=== PATIENT | female | born 1935 | race Caucasian/White ===

== ENCOUNTER 2024-07-31 12:19 | Inpatient (IN) | payer OTHER, SELFPAY ==
[2024-07-31] VITALS (11 sets, daily range): BP systolic 92–138; BP diastolic 46–77; BMI 25.7; BMI 25.0
--- NOTE | 2024-07-31 07:15 | ED.GENMED ---
History of Present Illness
General
Chief Complaint: Abdominal Symptoms
Source: patient
Time Seen by Provider: 07/31/24 07:02
History of Present Illness
History of Present Illness:
88-year-old female with past medical history of hyperlipidemia and hypothyroidism presenting to the ER via EMS for evaluation of mild mid abdominal cramping that started about an hour after eating dinner last night accompanied with persistent nausea
and vomiting, patient admits to trying to self-induced vomitus due to the discomfort caused by the nausea but states this did not provide her with any relief. She notes earlier this morning she is now also experiencing some tightness across her
chest. With continued nausea. She denies any fevers, chills, rigors, bowel changes or urinary symptoms although notes that while vomiting last night she did have some urinary leakage. Patient states that she had some chicken noodle soup, salad
and a little ice cream which is typical dinner for her. She notes that she has been feeling a little bit constipated and put some Benefiber in her soup as well. Patient denies any history of similar. EMS did provide patient with 4 mg Zofran with
minimal relief upon arrival.
Past History
Past History
ED Past Medical History: Hypercholesterolemia and Hypothyroidism
ED Past Surgical History: None
Social History
Tobacco: Non-smoker
Alcohol: None
Drug: None
Living: alone
Review of Systems
Review of Systems
All Other Systems: ROS reviewed and negative except as documented in HPI and ROS
Phy Exam
Physical Exam
Physical Exam:
GENERAL: Alert , in no apparent distress but does appear uncomfortable, laying recumbent with her eyes closed
EYE: clear conjunctiva b/l
HEAD: NCAT
ENT: mmm.
CARDIAC: Regular rate and rhythm, no murmur.
LUNGS: Clear breath sounds bilaterally, no acute respiratory distress, no wheezes/rales/rhonchi
ABDOMEN: Soft, generalized tenderness, no r/g, no cvat, negative Caraballo sign, no tenderness at McBurney's point
NEUROLOGICAL: Alert and oriented
SKIN: Warm and dry, skin intact.
MUSCULOSKELETAL: No edema, well perfused.
PSYCH: Normal and appropriate interaction.
Scores
Heart Failure Risk
Heart Failure Risk Score: Not Applicable
Heart Score for Chest Pain Patients
STEMI patient?: Not applicable
Withdrawal Assessment of Alcohol
Withdrawal Assessment Completed?: Not applicable
Course
Orders/Labs/Results
Orders:
Orders
07/31/24 07:01
Electrocardiogram (*1) Urgent
Reason for Study: Abdominal Pain
EKG- Treatment ONCE
IV Insert/Care/Rem.- Treatment PRN
07/31/24 07:05
Complete Blood Count/With Diff Urgent
Comprehensive Metabolic Panel Urgent
Lipase Urgent
07/31/24 07:14
CT Abd/pelvis W Iv Cont Urgent
Comment:
Reason For Exam: generalized abd pain, vomiting
Troponin I Urgent
Ondansetron Injectable [Zofran] 4 mg IV NOW STA
CR Chest - 2 Views Urgent
Comment:
Reason For Exam: chest discomfort, vomiting, abd pain
07/31/24 07:46
Metoclopramide [Reglan] 10 mg .ROUTE .STK-MED ONE
07/31/24 07:48
Metoclopramide [Reglan] 10 mg IV NOW STA
07/31/24 08:37
EKG- Treatment ONCE
07/31/24 08:44
US Abdomen Limited Urgent
Reason For Exam: cholelithiasis, vomiting Eval GB F/U to CT
07/31/24 10:00
EKG [Electrocardiogram (*1)] Urgent
Reason for Study: Abdominal Pain
07/31/24 10:01
Troponin I Urgent
07/31/24 11:05
Aspirin Chewable [Low Strength Aspirin] 324 mg PO NOW STA
07/31/24 11:54
Admit/Transfer Patient As Directed
Co-Sign Provider:
Level of Care: Inpatient admission
Assign to:: Telemetry
Physician / Group: sudheer storm
Diagnosis: nstemi
Reason for Telemetry: Chest Pain syndromes
Date to Stop Telemetry: 08/02/24
Time to Stop Telemetry: 11:00
Reason for Hospitalization: nstemi
Expected length of stay greater than two midnights?: No
ELOS- Estimated Length of Stay in days: 3
I certify the patient meets the requirements for IP care: Yes
PRN Pain Medication Management As Directed
May give lesser potent ordered pain med per pt: Yes
preference::
Protocol:: Medication orders for pain may be administered in a
manner that supports deferring to patient preference
when the pt is:
-Requesting an ordered lesser potent pain medication.
Least to most potent pain medications are defined as:
acetaminophen < NSAID < tramadol < opioids (morphine,
oxycodone, hydromorphone).
- Requesting a lesser dose of the same medication IF
ORDERED.
- Requesting a less intrusive route of administration
if both routes are prescribed by the provider (PO <
IV).
07/31/24 11:56
CARDIOLOGY CONSULT Routine
Consulting Provider: Jose Ramirez
Was physician already notified: Yes
07/31/24 13:17
Atorvastatin [Lipitor] 20 mg PO .3 TIMES PER WEEK
Enoxaparin Sodium [Lovenox] 30 mg SC NOW STA
Tramadol HCl [Ultram] 50 mg PO DAILY PRN
07/31/24 20:00
olopatadine 1 drop OPHTH BID
vit C,B-Gn-upqbk-lutein-zeaxan [PreserVision AREDS-2] 1 tablet PO BID
07/31/24 22:00
Melatonin 5 mg PO HS
08/01/24 08:00
Levothyroxine [Synthroid] 75 mcg PO DAILY
Loratadine [Claritin] 10 mg PO DAILY
ily-[id number]-[id number]-cfmh-mnv-zzfy-eof [Caltrate 600-D Plus Minerals] 1 tablet PO DAILY
calcium phos,dibas-vitamin D3 1 tablet PO DAILY
08/02/24 11:00
DC Protocol for Telemetry ONCE
Abnormal Lab Results
07/31/24 07/31/24 07/31/24
07:05 07:14 10:01
WBC 15.0 H 10^3/uL
(4.8-10.8)
MCHC 32.4 L g/dL
(33.0-37.0)
Abs Immat Gran (auto) 0.1 H 10^3/uL
(0-0.05)
Absolute Neuts (auto) 13.1 H 10^3/uL
(1.4-6.5)
Neutrophils % 87.4 H %
(42.2-75.2)
Lymphocytes % 7.7 L %
(20.5-51.1)
BUN 18 H mg/dl
(7-17)
Glucose 154 H mg/dl
(70-99)
Troponin I 0.043 H* ng/ml 0.140 H* D ng/ml
07/31/24 07:05
07/31/24 07:05
Vital Signs
Initial and Last Documented VS:
Initial Vital Signs
Temp Pulse Resp BP Pulse Ox
97.7 F 48 16 138/76 96
07/31/24 06:55 07/31/24 06:55 07/31/24 06:55 07/31/24 06:55 07/31/24 06:55
Last Documented Vital Signs
Temp Pulse Resp BP Pulse Ox
97.7 F 94 23 95/51 96
07/31/24 06:55 07/31/24 13:00 07/31/24 13:00 07/31/24 13:00 07/31/24 13:00
MDM/Problems Addressed
Differential Diagnosis Includes:
Gastroenteritis, foodborne illness, atypical ACS presentation, bowel obstruction, electrolyte imbalance, dehydration, aspiration
MDM/Problems Addressed:
88-year-old female presenting to the emergency department for evaluation after developing nausea about 1 hour after eating dinner last night, proceeded to have some vomitus but describes this to be bilious emesis but having continued nausea, mid
abdominal cramping and today had some chest discomfort. On arrival here patient's oxygen dropped to 88% and placed on 2 L NC with good response. Patient also had a somewhat transient episode of bradycardia with her heart rate dropping down to 48.
During my exam patient's heart rate persistently in the upper 50s to low 60s. Abdominal exam reassuring. Patient does appear uncomfortable still but more from nausea. Additional 4 mg Zofran ordered. Labs, chest x-ray and CT of the abdomen pelvis
ordered. Disposition pending
*Radiology
Radiology exam reviewed: radiology read reviewed
*Pulse Oximetry
Patient hypoxic: no
*EKG
Interpreted by ED Provider?: Yes
Heart Rate: 60
Rate: normal
Rhythm: sinus arrhythmia
[place]: left axis deviation
Ischemia: T-wave inversion (Nonspecific)
*Filer Repairer Interpretation
Rate: bradycardiac
Rhythm: sinus and PVC's
*Critical Care Note
Total Time (30-74mins, 75-104mins- exclusive of procedures): Not Applicable
Patient Management
Discussion with other providers: Hospitalist and Lodging Facilities Attendant
Escalation/DeEscalation of care consider admission/obs:
Patient's repeat troponin came back significantly more elevated at 0.140. Cardiology team and hospitalist team are made aware. Cardiology deferring heparin to hospitalist service. Patient received 325 mg of aspirin by EMS on her way to the ER.
She is currently chest pain-free. Repeat EKG is unchanged and remains without acute ischemic changes. Hospitalist team to admit.
ED Attending Note
-
Portions of this chart may have been created with voice recognition software.� Occasional wrong word or��sound alike� substitutions may have occurred due to the inherent limitations of voice recognition software.
Discharge Plan
Departure
Patient Disposition: Admit
Date of Disposition: 07/31/24
Time of Disposition: 11:29
Presentation/result/management discussed w/ accepting MD/DO: Hospitalist
Discharge Problem:
Elevated troponin, Nausea
Interventions
Interventions:
*Risk Screen - Suicide Last Done: 07/31/24 06:55
*General Assessment Last Done: 07/31/24 06:55
*Neglect/Abuse Screening Last Done: 07/31/24 06:55
ED- Fall Risk Assessment Last Done: 07/31/24 07:30
*ED COVID-19 Vaccine History Last Done: 07/31/24 11:47
OT-Raagzd-Jrfltoaddq Assessment Last Done: 07/31/24 07:30
[2024-07-31] MEDS: ZOFRAN 4 MG IV ×2 (07:16→19:28)
[2024-07-31 07:19] LABS: % Basophils 0.5 % (0-2); % Eosinophils 0.2 % (0-6); % Immature Granulocytes 0.4 % (0-0.5); % Lymphocytes 7.7 % (20.5-51.1); % Monocytes 3.8 % (1.7-9.3); % Neutrophils 87.4 % (42.2-75.2); Absolute Basophils 0.1 10^3/uL (0-0.2); Absolute Immature Granulocytes 0.1 10^3/uL (0-0.05); Absolute Lymphocytes 1.2 10^3/uL (1.2-3.4); Absolute Monocytes 0.6 10^3/uL (0.1-0.6); Absolute Neutrophils 13.1 10^3/uL (1.4-6.5); Hematocrit 42.9 % (37.0-47.0); Hemoglobin 13.9 g/dL (12.0-16.0); Mean Corp Hgb Conc. 32.4 g/dL (33.0-37.0); Mean Corpuscular Hgb 30.8 pg (27.0-31.0); Mean Corpuscular Volume 94.9 fL (81.0-99.0); Mean Platelet Volume 9.5 fL (7.4-10.4); Nucleated Red Blood Cells % 0 %; Platelet Count 300 10^3/uL (130-400); Red Blood Cell Count 4.52 10^6/uL (4.20-5.40); Red Cell Dist. Width 13.2 % (11.5-14.5)
[2024-07-31 07:27] LABS: ALT (SGPT) 19 U/L (0-35); AST (SGOT) 26 U/L (14-36); Albumin 4.3 g/dl (3.5-5.0); Alkaline Phosphatase 67 U/L (38-126); Blood Urea Nitrogen 18 mg/dl (7-17); Calcium 9.3 mg/dl (8.4-10.2); Carbon Dioxide 27 mmol/L (22-30); Chloride 103 mmol/L (98-107); Estimated Creatinine Clearance 62 ml/min; Glucose 154 mg/dl (70-99); Potassium 4.1 mmol/L (3.5-5.1); Sodium 142 mmol/L (135-145); Total Bilirubin 0.4 mg/dl (0.2-1.3); Total Protein 6.9 g/dl (6.3-8.2); eGFR > 60.00
[2024-07-31 07:49] LABS: Lipase 242 U/L (23-300)
[2024-07-31] MEDS: REGLAN 10 MG IV (07:49)
[2024-07-31 07:57] LABS: Troponin I 0.043 ng/ml
--- NOTE | 2024-07-31 12:18 | CON.CAR ---
Consultation
Consultation Request
Date/Time Consultation Requested: July 31, 2024
Date/Time Consultation Performed: July 31, 2024
Requesting Provider: Dr. Iban Jacobsen
Performing Provider: Dr. Ramirez
Reason for Consultation: Chest pain, elevated troponin
Medical History
-
Chief Complaint: Epigastric pain
History of Present Illness:
Rica is a 88-year-old female with history of hyperlipidemia hypothyroidism former distant smoker who presented with epigastric discomfort. She was eating dinner last night and had [place] chicken noodle soup and a salad at [facility] where
she lives. A short time thereafter she developed epigastric pain associated with nausea and wanting to vomit. She stuck her finger in her throat to try to vomit but was unable to induce vomiting at that time. She googled her symptoms and was
concerned about a possible cardiac issue. She came to the emergency room and was without acute EKG changes. First troponin was 0.043 and second troponin 0.1. Cardiology consulted secondary to troponin elevation and for further evaluation.
While in the emergency room she underwent CT scan of the abdomen and pelvis which did not show any specific abnormality other than the gallbladder containing a small amount of dependent sludge/stones. An abdominal ultrasound showed evidence of
cholelithiasis without sonographic evidence of acute cholecystitis. She states that treatment for nausea in the emergency room helped improve her symptoms immensely. She also vomited. She currently denies chest pain or shortness of breath. She
does admit to some recent fatigue and some dyspnea on exertion.
Past medical history:
Hyperlipidemia on Lipitor 3 times a week
Hypothyroidism
Cataract surgery
Past smoker quit over 40 years ago
Social History
Tobacco: Former Smoker (Quit over 40 years ago)
Alcohol: Occasional
Drug: None
Personal:
Living: Assisted Living
Employment: Retired
Family History
Family History: Reviewed & Not Pertinent (Her father had a stroke in his 70s to 80s)
Allergies / Home Medications
Allergy/AdvReac Type Severity Reaction Status Date / Time
No Known Allergies Allergy Unverified 07/31/24 07:12
�Medication �Instructions �Recorded �Confirmed �Type
atorvastatin 20 mg tablet 20 mg PO .3 TIMES PER WEEK 07/31/24 07/31/24 History
calcium 600 mg-D3 800 unit-mag11 1 tab PO DAILY 07/31/24 07/31/24 History
50 ad-irrz-uosjsr-george-s.borat
tablet (Caltrate 600-D Plus
Minerals)
calcium phosphate,dibasic 77 1 tab PO DAILY 07/31/24 07/31/24 History
mg-vitamin D3 400 unit tablet
levothyroxine 75 mcg tablet 75 mcg PO DAILY 07/31/24 07/31/24 History
loratadine 10 mg tablet (Claritin) 10 mg PO DAILY 07/31/24 07/31/24 History
melatonin 5 mg tablet 5 mg PO HS 07/31/24 07/31/24 History
olopatadine 0.1 % eye drops 1 drp ophthalmic (eye) BID 07/31/24 07/31/24 History
tramadol 50 mg tablet 50 mg PO DAILY PRN pain 07/31/24 07/31/24 History
vit C 250 mg-vit E 90 mg-zinc 40 1 tab PO BID 07/31/24 07/31/24 History
mg-copper 1 pr-jhpczt-ugtoas
capsule (PreserVision AREDS-2)
Review of Systems
-
History Source: Patient
All other systems: Negative unless noted
Abdomen/GI: Nausea, Vomiting and Pain (Epigastric pain)
Physical Exam
Vital Signs
Temp Pulse Resp BP Pulse Ox
97.7 F 95 24 93/48 97
07/31/24 06:55 07/31/24 12:00 07/31/24 12:00 07/31/24 12:00 07/31/24 12:00
Physical examination:
General: No acute distress, AAOX3
Neck: Negative JVD
Heart: Regular, Negative S3 positive S1/S2, Negative S4, No murmur
Lungs: CTA b/l, negative wheezes/rales/rhonchi
Abd: Positive BS, NT/ND, neg rebound/rigidity/guarding
Ext: Negative cyanosis/clubbing/edema
Neuro: nonfocal
Lab Results
07/31/24 07:05
07/31/24 07:05
Troponin I 0.140 ng/ml H* D 07/31/24 10:01
Impression / Plan
-
.
Impression:
Epigastric pain after eating
Nausea and vomiting
Shortness of breath
Elevated troponin, 0.1 and trending
Abnormal EKG
Hyperlipidemia
Cholelithiasis on ultrasound and CT scan
Hypothyroidism
Distant smoker
Plan:
Her symptoms are atypical for cardiac and her epigastric pain currently is reproducible.
CT scan ultrasound findings reviewed. She did respond to treatment for nausea. Consider GI evaluation inpatient versus outpatient
Continue to trend enzymes until they peak.
Check echo to evaluate for structural heart disease
Pending cardiac enzyme peak, will consider ischemic evaluation.
NPO after midnight for possible ischemic evaluation tomorrow
Monitor EKG, inferolateral T wave inversions.
Start aspirin 81 mg daily.
Check fasting lipids. Continue statin therapy
Heart rate and blood pressure acceptable. Heart rate is on the higher side, start low-dose beta-luciana therapy.
Discussed with nursing and primary service
.
Data Reviewed
-
EKG: Tracing Personally Visualized and interpreted
CT Scan: Report Reviewed by me
Ultrasound: Report Reviewed by me
Labs: Labs Reviewed by me
--- NOTE | 2024-07-31 12:29 | HPS.HSE ---
Family Physician
-
Family Physician: Melida Grijalva
Chief Complaint
-
CHest pain nausea
History of Present Illness
88 female with a history of hyperlipidemia on 3 times a week Lipitor, hypothyroidism, former smoker who presents with nausea that began after eating dinner last night that continued throughout the night and subsequently developed chest tightness
this morning that spread across her chest to her back. No diaphoresis nor tachycardia. She is unable to tell me if she had any abdominal pain. States that she [place] chicken noodle soup�old-fashioned with a salad from her assisted living
facility. Has not had chest discomfort like this in the past.
In the ED: Blood pressure trending down most recent 93/48 on the softer side, otherwise hemodynamically stable, white blood cell count 15, BMP unremarkable with first troponin 0.043,
0.14, EKG with T wave inversions in v3-v6, III, avf, flat twave in II.
Former smoker quit many years ago, occasionally drinks alcohol, no drug use
No surgical history
Has a strong family history of cancer. Children from cancer along with mother that is from cancer. She is unable to tolerate who had what type of cancer but she tells me breast brain pancreatic. Father from CVA.
from medical marijuana
She has no known drug allergy
DNR/DNI
Physical Exam
NAD, resting comfortably in bed
Scleral anicteric
Moist mucous membranes
No JVD
CTA bilateral
Normal S1-S2 no murmurs
Soft nontender nondistended bowel sounds active
No peripheral pitting edema
Moves extremities spontaneously
AAOx3
-
-
-
-
-
-
-
-
-
-
-
-
-
-
-
-
-
-
-
Medical History
Past Medical History
Past Medical History: Reports Hypercholesterolemia and Hypothyroidism
Past Surgical History: Reports None
Social History
Tobacco: Former Smoker
Alcohol: Occasional
Drug: None
Family History
Family History: Cancer
Allergies / Home Medications
Allergies reflects when Allergies were last updated in [employer] | Anywhere.
Home Medications with original date entered in [employer] | Anywhere
Allergy/Medication List:
Allergies
Allergy/AdvReac Type Severity Reaction Status Date / Time
No Known Allergies Allergy Unverified 07/31/24 07:12
Home Medications
aflibercept 2 mg/0.05 mL intravitreal syringe (Eylea) 2 mg intravitreal QMONTH 07/31/24
atorvastatin 20 mg tablet 20 mg PO MOWEFR 07/31/24
calcium 600 mg (as carbonate)-vit D3 20 mcg (800 unit) chewable tablet (Caltrate plus D) 1 tab PO DAILY 07/31/24
carboxymethylcellulose 0.5 %-glycerin 0.9 % (PF) eye drops (Refresh Tears PF) 1 drp ophthalmic (eye) DAILYPRN PRN dry eyes 07/31/24
cholecalciferol (vitamin D3) 25 mcg (1,000 unit) tablet (Vitamin D3) 25 mcg PO DAILY 07/31/24
levothyroxine 75 mcg tablet 75 mcg PO DAILY 07/31/24
loratadine 10 mg tablet (Claritin) 10 mg PO DAILYPRN PRN congestion 07/31/24
tramadol 50 mg tablet 50 mg PO DAILYPRN PRN moderate pain 07/31/24
vit C 250 mg-vit E 90 mg-zinc 40 mg-copper 1 cr-ycmywk-yxaifc capsule (PreserVision AREDS-2) 1 tab PO BID 07/31/24
Review of Systems
-
A 12 point ROS was completed and negative except as noted: Yes
Physical Exam
Vital Signs
Vital Signs
Temp Pulse Resp BP Pulse Ox
97.7 F 95 24 93/48 97
07/31/24 06:55 07/31/24 12:00 07/31/24 12:00 07/31/24 12:00 07/31/24 12:00
Physical Exam
General: Well Developed
Laboratory Results
-
07/31/24 07:05
07/31/24 07:05
Laboratory Results
Total Bilirubin 0.4 mg/dl (0.2-1.3) 07/31/24 07:05
AST 26 U/L (14-36) 07/31/24 07:05
ALT 19 U/L (0-35) 07/31/24 07:05
Alkaline Phosphatase 67 U/L (38-126) 07/31/24 07:05
Troponin I 0.140 ng/ml H* D 07/31/24 10:01
Lipase 242 U/L (23-300) 07/31/24 07:05
Impression/Plan
-
Assessment and Plan
Chest discomfort with nausea
-Differential diagnosis broad could be CAD versus microvascular disease versus gastritis versus GERD versus esophageal spasm
-Troponin x 2 positive and doubling thus far
-Trend to peak
-Between the story and diagnostic work up would be concerned for NSTEMI, contemplating starting Hep gtt
--Cardiology consult
--2d echo
--Ischemic eval
--Lipid profile
--A1c
HLD
-On EOD Lipitor, ocnitnue
Hypothyroidism
-Continue levothyroxine
--- NOTE | 2024-07-31 13:12 | CM ---
Chart reviewed. Patient is here for chest pain with nausea. CM introduced self and role. Patient lives at [facility]. She has a grandson for support. She also has 5 great-grandchildren. She is independent. She does own any DME. She has an active
PCP and pharmacy. She shared she has [employer] [facility]- which helps with ambulance costs. She denied any +SDOHs. She is a retired registration officer.
ANTICIPATED DISCHARGE DISPO: Return to [facility], when medically cleared.
[2024-07-31 14:34] LABS: Hematocrit 43.1 % (37.0-47.0); Hemoglobin 14.2 g/dL (12.0-16.0); Mean Corp Hgb Conc. 32.9 g/dL (33.0-37.0); Mean Corpuscular Volume 94.1 fL (81.0-99.0); Mean Platelet Volume 9.5 fL (7.4-10.4); Platelet Count 290 10^3/uL (130-400); Red Blood Cell Count 4.58 10^6/uL (4.20-5.40); Red Cell Dist. Width 13.4 % (11.5-14.5); White Blood Cell Count 21.6 10^3/uL (4.8-10.8)
[2024-07-31 14:44] LABS: APTT 27.7 Sec (23.4-35.0)
[2024-07-31] MEDS: HEPARIN 4000 UNITS IV (15:02)
[2024-07-31] MEDS: HEPARIN 25000 UNITS/250 ML IV (15:05)
[2024-07-31 15:09] LABS: Troponin I 0.252 ng/ml
[2024-07-31] MEDS: TOPROL XL 12.5 MG PO (15:15)
--- NOTE | 2024-07-31 18:02 | PTCARENOTE ---
Pt c/o nausea after meal, stated she only had a few bites as she wasn't very hungry. hospitalist notified.
[2024-07-31] MEDS: ZADITOR 1 DROP OPHTH (20:09)
[2024-07-31] MEDS: OCUVITE SOFTGEL 1 CAP PO (20:09)
[2024-07-31 21:48] LABS: APTT 89.9 Sec (23.4-35.0)
[2024-07-31 21:56] LABS: Troponin I 0.182 ng/ml
[2024-08-01 03:51] VITALS: BP 95/43
[2024-08-01 04:25] LABS: APTT 116.9 Sec (23.4-35.0)
[2024-08-01 04:32] LABS: Troponin I 0.105 ng/ml
[2024-08-01] MEDS: SYNTHROID 75 MCG PO (06:07)
[2024-08-01] MEDS: OSCAL 500 + D 500 MG PO (07:39)
[2024-08-01] MEDS: CLARITIN 10 MG PO (07:39)
[2024-08-01] MEDS: ZADITOR OPHTH ×2 (07:39→07:44)
[2024-08-01] MEDS: TOPROL XL 12.5 MG PO (07:39)
[2024-08-01] MEDS: OCUVITE SOFTGEL 1 CAP PO (07:39)
[2024-08-01] MEDS: LOW STRENGTH ASPIRIN 81 MG PO (07:39)
[2024-08-01] MEDS: LIPITOR 20 MG PO (07:41)
[2024-08-01 07:54] VITALS: BP 111/52
[2024-08-01 08:36] LABS: Troponin I 0.077 ng/ml
[2024-08-01 08:47] LABS: HDL Cholesterol 70 mg/dl; LDL Cholesterol, Calculated 52 mg/dl; Total Cholesterol 137 mg/dl (50-199); Triglyceride 79 mg/dl (10-149); Very Low Density Lipoprotein 15 mg/dl (0-30)
[2024-08-01 10:49] LABS: APTT 72.5 Sec (23.4-35.0)
--- NOTE | 2024-08-01 10:58 | W.PN.HOSP.TC ---
Today's Communication/Plan
-
Pt wants to go home
Stable VS upon rechecking
PT/OT before discharge
Assessment / Plan
Assessment / Plan
Physical exam:
General: No acute distress.
Neck: Negative JVD
Heart: Regular, Negative S3 positive S1/S2, Negative S4, No murmur
Lungs: CTA b/l, negative wheezes/rales/rhonchi
Abd: Positive BS, NT/ND, neg rebound/rigidity/guarding
Ext: Negative cyanosis/clubbing/edema
Neuro: nonfocal, AAOX3
Psych; calm, pleasant
# NSTEMI peak Troponin 0.252
she had chest discomfort with nausea, currently symptoms free >24 hours
troponin peak at 0.2 then went down to 0.07
She was started on aspirin, Toprol, Plavix with Atorvastatin.
Echo 08/01/24 showed Normal LVEF at 55-60%, normal left ventricular size and function. Normal regional wall motion. Mild concentric left ventricular hypertrophy. Moderate tricuspid regurgitation. Estimated pulmonary artery pressure of 35-40 mmHg.
Patient wants to go home and she declined cardiac cath offered by cardiology. I spoke with her at length and discussed potential severe [place], , stroke but she felt that she wanted to have time to rethink about cath before deciding. I offered to
keep her another night to give her time to decide but she declined to stay. ,
Appreciate cardiology input, recommend to stop heparin gtt, c/w Asprin and Plavix and follow in the office.
#HLD
-On EOD Lipitor, ocnitnue
# Hypothyroidism
-Continue levothyroxine
Total discharge time spent to see the patient, examine the patient on the floor, review data and lab results, discuss discharge plan with patient, nursing staff around 65 minutes
Anticipated Discharge: Today
Subjective/Interval History
-
Date of Service: August 01, 2024
No chest pain No sob
Wants to go home today
Objective Data
-
Labs:
Laboratory Results
08/01/24 08/01/24
03:48 10:13
APTT 116.9 H 72.5 H
Vital Signs:
Vital Signs
Temp Pulse Resp BP Pulse Ox
97.8 F 71 18 111/52 95
08/01/24 07:54 08/01/24 07:54 08/01/24 07:54 08/01/24 07:54 08/01/24 07:54
I&O
07/31/24 08/01/24 08/02/24
06:59 06:59 06:59
Intake Total 840 / 840
Balance 840 / 840
--- NOTE | 2024-08-01 11:09 | W.PN.CARDCBS ---
Addendum entered and electronically signed by Jose Ramirez DO 08/01/24 14:33:
I saw and examined the patient.
The Band Cutting Machine Operator's note was reviewed and I agree with the note.
Comment:
Plan:
Long discussion with the patient regarding her troponin peak at 0.2, abnormal EKG and symptoms.
We discussed further evaluation with cardiac catheterization including the risks and benefits in detail.
Reviewed her echocardiogram which was unremarkable with preserved LV function and no significant valvular disease.
After review, the patient opts against invasive treatment at this time including cath. She wants to follow-up with her PCP and discuss further and be followed clinically for now.
She understands that delay in evaluation of her coronary anatomy could lead to increased risk of future NC and .
At her advanced age she states she would prefer to be more conservative at present.
She also opted against speaking with additional family members.
Continue dual antiplatelet therapy.
Continue statin therapy. She has been intolerant to higher doses of statin therapy.
Will give her our contact information as she declined a follow-up visit in our office.
Primary service was updated.
Original Note:
Today's Communication / Plan
-
Cont Heparin gtt for now, but will add Plavix to aspirin
Cont new med of Toprol XL 12.5 mg daily that was started this admission
Cont outpatient dose of atorvastatin, she has intolerance to higher doses of statin
54 min in face to face time and chart prep
Impression / Plan
-
PCP: Dr. Melida Grijalva
Cardiology: None prior to admission, seen by Dr. Ramirez initially
Impression:
Epigastric pain after eating
Nausea and vomiting
Shortness of breath
Suspected NSTEMI peak Troponin 0.252
Abnormal EKG
Hyperlipidemia
Cholelithiasis on ultrasound and CT scan
Hypothyroidism
Distant smoker
Echo 08/01/24: EF 55-60%, mod TR with PAP 35 mmHg
Plan:
-Patient with atypical chest pain on admission and Troponin peaked at 0.252 with inferior and anterolateral T wave inversions. Echo without WMA. Patient started on Heparin gtt 07/31/24. Patient has not had recurrent chest pain.
-Talked with patient 08/01/24, asked if there was anyone she wanted to call and have on speaker phone while we talked, but her child and she only has a grandson who has 5 kids of his own and so she does not want to burden him. We talked
about all of the above and talked about options for management including cardiac cath vs medical therapy vs doing nothing. Reviewed risks vs benefits of cath and patient does not want to have cath at this time. Patient is willing to start medical
therapy.
-Will start Plavix in addition to aspirin. Patient was not taking aspirin prior to admission
-New to Toprol XL 12.5 mg daily
-LDL 52. Patient has a h/o statin intolerance and will cont her outpatient dose of atorvastatin 20 mg daily.
-Patient is not sure which can filling machine operator she would want to follow up with, she wants to get an opinion from her PCP and mentions seeking a 2nd opinion elsewhere.
-Will ask cardiac rehab to see, she might decline
-Patient is asking for d/c to home 08/01/24.
.
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
Subjective
Date of Service: August 01, 2024
Feels well, no chest pain
Objective
Labs:
07/31/24 14:22
07/31/24 07:05
Labs
Hgb 14.2 g/dL (12.0-16.0) 07/31/24 14:22
Hct 43.1 % (37.0-47.0) 07/31/24 14:22
Plt Count 290 10^3/uL (130-400) 07/31/24 14:22
APTT 72.5 Sec (23.4-35.0) H 08/01/24 10:13
Sodium 142 mmol/L (135-145) 07/31/24 07:05
Potassium 4.1 mmol/L (3.5-5.1) 07/31/24 07:05
BUN 18 mg/dl (7-17) H 07/31/24 07:05
Creatinine 0.7 mg/dL (0.6-1.0) 07/31/24 07:05
Glucose 154 mg/dl (70-99) H 07/31/24 07:05
Troponins
07/31/24 07/31/24 07/31/24
07:14 10:01 14:22
Troponin I 0.043 H* 0.140 H* D 0.252 H* D
07/31/24 08/01/24 08/01/24
21:21 03:48 07:57
Troponin I 0.182 H* D 0.105 H* D 0.077 H* D
Vital Signs and I&O:
Vital Signs
Temp Pulse Resp BP Pulse Ox
97.8 F 71 18 111/52 95
08/01/24 07:54 08/01/24 07:54 08/01/24 07:54 08/01/24 07:54 08/01/24 07:54
Vital Signs
Temp Pulse Resp BP Pulse Ox
97.8 F 71 18 111/52 95
08/01/24 07:54 08/01/24 07:54 08/01/24 07:54 08/01/24 07:54 08/01/24 07:54
Intake & Output
07/30/24 07/31/24 08/01/24 08/02/24
06:59 06:59 06:59 06:59
Intake Total 840 / 840
Balance 840 / 840
Physical Exam
Physical Exam
GEN: NAD. AAOx3
HEENT: MMM
LUNGS: No audible wheeze
CV: SR on tele
ABD: ND
EXT: No edema B/L
NEURO: Gross non-focal
SKIN: No rash
[2024-08-01 11:17] LABS: Glycohemoglobin (HgbA1c) 5.5 % (4.0-5.6)
[2024-08-01 11:38] VITALS: BP 96/74
[2024-08-01] MEDS: PLAVIX 75 MG PO (13:09)
[2024-08-01 15:05] VITALS: BP 115/58; PULSE 79; O2SAT 97
--- NOTE | 2024-08-01 15:38 | W.DCSUMMARY ---
Discharge Summary
Discharge Data
Date of Admission: 07/31/24
Date of Discharge: 08/01/24
-
Pending Results: No
Hospital Course
88 years old female presented with epigastric discomfort. She developed epigastric pain associated with nausea. First troponin was 0.043 and second troponin 0.1. Cardiology consulted secondary to troponin elevation and for further evaluation. CT
scan of the abdomen and pelvis which did not show any specific abnormality other than the gallbladder containing a small amount of dependent sludge/stones. An abdominal ultrasound showed evidence of cholelithiasis without sonographic evidence of
acute cholecystitis. She stated that treatment for nausea in the emergency room helped improve her symptoms immensely. She also vomited. She denied recurrent chest pain or shortness of breath. Upon further evaluation, troponin peak at 0.2 then
went down to 0.07. [place] suspect NSTEMI. EKG showed SR with non-specific ST changes. She was started on aspirin, Toprol, Plavix with Atorvastatin.
Echocardiogram 08/01/24 showed Normal LVEF at 55-60%, normal left ventricular size and function. Normal regional wall motion. Mild concentric left ventricular hypertrophy. Moderate tricuspid regurgitation. Estimated pulmonary artery pressure of
35-40 mmHg. Patient wanted to go home and she declined cardiac cath offered by cardiology. We spoke with her at length and discussed potential severe [place], , stroke but she felt that she wanted to have time to rethink about her options. She was
offered to stay another night to give her time to decide but she declined to stay. She was noted to have elevated WBC but no fevers or cough or GI/urinary symptoms. It was felt to be reactive. Patient wanted to see land clearer in the office, she
was given contact informations. She remained hemodynamically stable and was discharged home in a stable condition.
Discharge Plan
-
Patient Disposition: Home (Routine Discharge)
Discharge Diagnosis/Procedures: Chest pain
You were started on new medications including: Aspirin, antiplatelet, potential side effects include bleeding, gastric irritation.
Plavix, antiplatelet, potential side effects include bleeding
Toprol, beta-luciana, blood pressure and cardiac medications. Potential side effects include bradycardia, hypotension
Diet: Low Cholesterol and Low Sodium
Referrals:
Jose Ramirez DO [Active] - in one to two weeks (We sent cardiology progress note to your regular doctor. We gave you a copy of your echo report. Please return to the ER if you have more chest or abdominal pain. Please follow up with your primary care
doctor and see a land clearer, we are happy to see you in our office or if you'd like to find a different land clearer we can send records.)
Melida Grijalva MD [Family Provider] - in less than 1 week
Prescriptions:
New
clopidogrel 75 mg Tablet
75 mg PO DAILY Qty: 30 0RF
aspirin 81 mg Tablet,Chewable
81 mg PO DAILY Qty: 30 0RF
metoprolol succinate 25 mg Tablet Extended Release 24 Hr
12.5 mg PO DAILY Qty: 30 0RF
Continued
atorvastatin 20 mg Tablet
20 mg PO MOWEFR
tramadol 50 mg Tablet
50 mg PO DAILYPRN PRN (Reason: moderate pain)
levothyroxine 75 mcg Tablet
75 mcg PO DAILY
loratadine [Claritin] 10 mg Tablet
10 mg PO DAILYPRN PRN (Reason: congestion)
PreserVision AREDS-2 250-90-40-1 mg Capsule
1 tab PO BID
cholecalciferol (vitamin D3) [Vitamin D3] 25 mcg (1,000 unit) Tablet
25 mcg PO DAILY
Eylea 2 mg/0.05 mL Syringe
2 mg INTRAVITREAL QMONTH
Caltrate 600 plus D 600 mg-20 mcg (800 unit) Tablet,Chewable
1 tab PO DAILY
Refresh Tears PF 0.5-0.9 % Drops
1 drp ophthalmic (eye) DAILYPRN PRN (Reason: dry eyes)
Discharge Orders:
Discharge Patient (As Directed); Ordered 08/01/24
Ordered By: Weston Abbas
Discharge Date and Time
Print Language: MONTENEGRIN
[2024-08-01 15:46] VITALS: BP 109/54
--- NOTE | 2024-08-01 16:11 | CM ---
Chart reviewed. Pt is a independent living resident at [facility].
Per hospitalist pt wants to d/c today
Pt seen bedside, pt agreeable to d/c today.
Pt will transport via [facility], spoke w/ Morgan ramos, who will cover cost. Cost is $130. Acute care number provided to arrange payment.
IMM reviewed, pt give copy. Copy placed in chart
Pt has no recommended needs at this time
Informed Sonja/[facility] of pt returning today to her [place] apt
Plan: Return to independent living apt
== END 2024-08-01 18:26 | disposition home or self-care (01) | DRG 282 ==
LOC: 4 WEST ACU 12:19
PROVIDERS: Nurse Practitioner Family; Physician Assistant Medical; Student in an Organized Health Care Education/Training Program; ADMITTING PHYSICIAN Hospitalist; ATTENDING PHYSICIAN Internal Medicine; CONSULT PHYSICIAN Nuclear Medicine Nuclear Cardiology; EMERGENCY PHYSICIAN Emergency Medicine; FAMILY PHYSICIAN Internal Medicine Geriatric Medicine
DX: I21.4 Non-ST elevation (NSTEMI) myocardial infarction (principal); Z66 Do not resuscitate; E78.00 Pure hypercholesterolemia, unspecified; E03.9 Hypothyroidism, unspecified; K80.20 Calculus of gallbladder without cholecystitis without obstruction
CPT/HCPCS: 71046; 74177; 76705; 80053; 80061; 83036; 83690; 84484; 85025; 85027; 85730; 93005; 93306; 96374; 96375; 97162; 97165; 99285; Q9967